=== PATIENT | male | born 1990 | race Two or more races ===

== ENCOUNTER 2017-02-11 | Emergency (ER) | payer SELFPAY ==
[2017-02-11 00:44] VITALS: BP 133/79; PULSE 89; BMI 30.9
[2017-02-11] MEDS ORDERED: SODIUM CHLORIDE FOR INHALATION 3 ML VIAL.NEB IH ONE (01:36)
--- NOTE | 2017-02-11 01:37 | PDOC ---
*Physical Exam - Vital Signs Last Vital Signs Temp Pulse Resp BP Pulse Ox 89 18 133/79 99 02/11/17 00:42 02/11/17 00:42 02/11/17 00:42 02/11/17 00:42 Medical Decision Making - Medical Decision Making 02/11/17 01:37 agree with care from [facility] *DC/Admit/Observation/Transfer Diagnosis at time of Disposition: Lightheaded - Referrals Referrals: Tonia Sauer MD [Staff Physician] - - Patient Instructions Printed Discharge Instructions: DI for Inhalation Injury Additional Instructions: As discussed, please follow up with a primary care doctor this week if any new symptoms present. If you experience any shortness of breath, headache, palpitations, chest pain, nausea, vomiting, fever, chills, or any new or worsening symptoms, please return to the ER.
--- NOTE | 2017-02-11 02:50 | PDOC ---
History of Present Illness - General Chief Complaint: Lightheaded Stated Complaint: Lightheaded Time Seen by Provider: 02/11/17 00:45 - History of Present Illness Initial Comments: 02/11/17 02:47 CHIEF COMPLAINT: lightheadedness HISTORY OF PRESENT ILLNESS: 26 yo M with no PMH presents to ED with lightheadedness. Patient reports that "I used a lot of Raid in my house earlier , and now I feel lightheaded." He denies any shortness of breath, headache, nausea, vomiting, dizziness, or palpitations. PAST MEDICAL HISTORY: Denies past medical history SOCIAL HISTORY: Denies tobacco, alcohol, illicit drug use. SURGICAL HISTORY: Denies ALLERGIES: No known drug allergies REVIEW OF SYSTEMS General/Constitutional: Denies fever or chills. Denies weakness, weight change. HEENT: Denies change in vision. Denies ear pain or discharge. Denies sore throat. Cardiovascular: Denies chest pain or shortness of breath. Respiratory: Denies cough, wheezing, or hemoptysis. Gastrointestinal: Denies nausea, vomiting, diarrhea or constipation. Denies rectal bleeding. Genitourinary: Denies dysuria, frequency, or change in urination. Musculoskeletal: Denies joint or muscle swelling or pain. Denies neck or back pain. Skin and breasts: Denies rash or easy bruising. Neurologic: "Lightheadedness." Denies headache, vertigo, loss of consciousness, or loss of sensation. PHYSICAL EXAM General Appearance: Well-appearing, appropriately dressed. No apparent distress , no intoxication. HEENT: EOMI, PERRLA, normal ENT inspection, normal voice, TMs normal, pharynx normal. No conjunctival pallor. No photophobia, scleral icterus. Neck: Supple. Trachea midline. No tenderness, rigidity, carotid bruit, stridor , lymphadenopathy, or thyromegaly. Respiratory/Chest: Lungs CTAB. No shortness of breath, chest tenderness, respiratory distress, accessory muscle use. No crackles, rales, rhonchi, stridor , wheezing, dullness Cardiovascular: RRR. S1, S2. No JVD, murmur, bradycardia, tachycardia. Vascular Pulses: Dorsalis-Pedis (R): 2+, Dorsalis-Pedis (L): 2+ Gastrointestinal/Abdominal: Normal bowel sounds. Abdomen soft, non-distended. No tenderness or rebound tenderness. No organomegaly, pulsatile mass, guarding , hernia, hepatomegaly, splenomegaly. Lymphatic: No adenopathy, tenderness. Musculoskeletal/Extremities: Normal inspection. FROM of all extremities, normal capillary refill. Pelvis Stable. No CVA tenderness. No tenderness to extremities, pedal edema, swelling, erythema or deformity. Integumentary: Appropriate color, dry, warm. 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 Fully oriented, alert. Appropriate mood/affect. Motor strength 5/5. No appreciable EOM palsy, facial droop or sensory deficit. Past History - Past Medical History Allergies/Adverse Reactions: Allergies Allergy/AdvReac Type Severity Reaction Status Date / Time No Known Allergies Allergy Verified 02/11/17 00:44 Home Medications: Ambulatory Orders Sulfamethoxazole/Trimethoprim [Bactrim DS -] 1 tab PO BID #14 tablet 08/30/13 Mupirocin Cream [Bactroban 2% Cream -] 1 applic TP TID #1 tube 09/01/13 - Surgical History Appendectomy: Yes - Immunization History Immunization Up to Date: Yes - Psycho/Social/Smoking Cessation Hx Anxiety: No Suicidal Ideation: No Smoking History: Never smoked Have you smoked in the past 12 months: No Number of Cigarettes Smoked Daily: 0 Cigars Per Day: 0 Information on smoking cessation initiated: No Hx Alcohol Use: No Drug/Substance Use Hx: No Substance Use Type: None *Physical Exam - Vital Signs Last Vital Signs Temp Pulse Resp BP Pulse Ox 89 18 133/79 99 02/11/17 00:42 02/11/17 00:42 02/11/17 00:42 02/11/17 00:42 ED Treatment Course - Medications Given in the ED: ED Medications Discontinued Medications Generic Name Dose Route Start Last Admin Trade Name Freq PRN Reason Stop Dose Admin Sodium Chloride 3 ml 02/11/17 01:36 02/11/17 01:58 Normal Saline For Inhalation - IH 02/11/17 01:37 3 ml ONCE ONE Administration Medical Decision Making - Medical Decision Making 02/11/17 02:48 26 yo M with no PMH presents to ED with lightheadedness. Patient exam unremarkable. -saline neb Patient reassessed. At this time patient reports he is feeling better and feels comfortable following up with PMD if any new symptoms presents. Referral provided. Advised patient of signs and symptoms for return to ER; patient verbalized understanding and agrees to plan. *DC/Admit/Observation/Transfer Diagnosis at time of Disposition: Lightheadedness - Discharge Dispostion Disposition: HOME Condition at time of disposition: Stable Admit: No - Referrals Referrals: Tonia Sauer MD [Staff Physician] - - Patient Instructions Printed Discharge Instructions: DI for Inhalation Injury Additional Instructions: As discussed, please follow up with a primary care doctor this week if any new symptoms present. If you experience any shortness of breath, headache, palpitations, chest pain, nausea, vomiting, fever, chills, or any new or worsening symptoms, please return to the ER.
== END 2017-02-11 03:19 ==
LOC: JER
CPT/HCPCS: 99281-25

== ENCOUNTER 2017-02-12 09:39 | Emergency (ER) | payer SELFPAY ==
[2017-02-12 09:46] VITALS: TEMP 98.1; BMI 30.9
[2017-02-12 10:22] LABS: URINE APPEARANCE CLEAR; URINE BILIRUBIN NEGATIVE (NEGATIVE); URINE BLOOD 1+ (NEGATIVE); URINE COLOR LTYELLOW; URINE GLUCOSE (UA) NEGATIVE (NEGATIVE); URINE KETONE NEGATIVE (NEGATIVE); URINE LEUK ESTERASE NEGATIVE (NEGATIVE); URINE NITRITE NEGATIVE (NEGATIVE); URINE PROTEIN NEGATIVE (NEGATIVE); URINE UROBILINOGEN NEGATIVE mg/dL (0.2-1.0)
[2017-02-12 10:28] LABS: URINE RBC 1 /hpf (0-3); URINE WBC <1 /hpf (3-5)
--- NOTE | 2017-02-12 11:13 | PDOC ---
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 Patient reports it became acutely worse 4 days ago. He reports he feels unsteady on his feet. He states he has had similar symptoms before associated with palpitations. He denies current palpitations today. Denies fever, chills, chest pain, SOB, abdominal pain, urinary complaints, diarrhea, constipation. - Physicial Exam PE: 02/12/17 11:22 I agree with the residents physical exam. <Sil Hopper - Last Filed: 02/12/17 11:22>
[2017-02-12] MEDS ORDERED: SODIUM CHLORIDE 0.9% 1000 ML INFUS.BAG IV ONE (11:15)
[2017-02-12 11:16] LABS: BASOPHIL 0.5 % (0-2.0); EOSINOPHIL 0.5 % (0-4.5); MCH 26.8 pg (25.7-33.7); MCHC 33.3 g/dl (32.0-35.9); MEAN CELL VOLUME 80.5 fl (80-96); MEAN PLT VOLUME 7.8 fl (7.5-11.1); PLATELET COUNT 241 K/MM3 (134-434); RDW 14.4 % (11.9-15.9); WHITE BLOOD COUNT 6.3 K/mm3 (4.0-10.0)
[2017-02-12 11:53] LABS: ALBUMIN 3.9 g/dl (3.4-5.0); ANION GAP 9 (8-16); BILIRUBIN,TOTAL 0.4 mg/dL (0.2-1.0); CALCIUM 9.4 mg/dL (8.5-10.1); CO2 27 mmol/L (21-32); CREATININE 1.2 mg/dL (0.7-1.3); GLUCOSE,RANDOM 97 mg/dL (74-106); SGOT/AST 24 U/L (15-37); SGPT/ALT 37 U/L (12-78); TOT PROT 7.8 g/dl (6.4-8.2)
[2017-02-12 11:54] LABS: ALK PHOS 53 U/L (45-117)
--- NOTE | 2017-02-12 13:41 | PDOC ---
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 The patient reports a sensation of feeling "wobbly" that began 6 days ago. It resolved 5 days ago, however return after he worked out 4 days ago and has persisted since that time. He was seen in the ED 2 days ago for these same complaints, was given a saline nebulizer and determined to be safe for discharge at that time. He states that he presents today due to persistent symptoms despite his visit to the ED 2 days ago. He denies fevers, chills, SOB , chest pain, abdominal pain, changes with urination or bowel movements. Past History - Past Medical History Allergies/Adverse Reactions: Allergies Allergy/AdvReac Type Severity Reaction Status Date / Time No Known Allergies Allergy Verified 02/12/17 09:42 Home Medications: Ambulatory Orders NK [No Known Home Medication] 02/12/17 Cardiac Disorders: Yes (WPW) - Surgical History Appendectomy: Yes - Immunization History Immunization Up to Date: Yes - Psycho/Social/Smoking Cessation Hx Anxiety: No Suicidal Ideation: No Smoking History: Never smoked Have you smoked in the past 12 months: No Number of Cigarettes Smoked Daily: 0 Cigars Per Day: 0 Hx Alcohol Use: No Drug/Substance Use Hx: No Substance Use Type: None Review of Systems - Review of Systems Constitutional: No: Chills, Fever HEENTM: No: Recent change in vision, Tinnitus Respiratory: No: Cough, Shortness of Breath Cardiac (ROS): No: Chest Pain, Palpitations, Chest Tightness ABD/GI: No: Constipated, Diarrhea, Nausea, Vomiting : No: Burning, Dysuria, Pain Integumentary: No: Rash Neurological: No: Headache, Numbness, Tingling, Weakness *Physical Exam - Vital Signs Last Vital Signs Temp Pulse Resp BP Pulse Ox 98.1 F 98 H 18 151/80 100 02/12/17 09:42 02/12/17 09:42 02/12/17 09:42 02/12/17 09:42 02/12/17 09:42 - Physical Exam Comments: 02/12/17 13:43 General Appearance: Nourished. No Apparent Distress HEENT: EOMI, WILD. No Pale Conjunctivae, Pharyngeal Erythema, Tonsillar Exudate, Tonsillar Erythema Respiratory/Chest: Lungs Clear, Normal Breath Sounds. No Crackles, Rales, Rhonchi, Wheezing Cardiovascular: Regular Rhythm, Regular Rate. No Murmur, Gallop/S3, Gallop/S4 Gastrointestinal/Abdominal: Normal Bowel Sounds, Soft. 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 Normal Finger to Nose and johnson to heel. No gait abnormalities. ED Treatment Course - LABORATORY CBC & Chemistry Diagram: 02/12/17 11:10 02/12/17 11:10 - ADDITIONAL ORDERS Additional order review: Laboratory Results 02/12/17 02/12/17 11:10 10:00 Sodium 137 Potassium 4.2 Chloride 101 Carbon Dioxide 27 Anion Gap 9 BUN 13 Creatinine 1.2 Creat Clearance w eGFR > 60 Random Glucose 97 Calcium 9.4 Total Bilirubin 0.4 AST 24 ALT 37 Alkaline Phosphatase 53 Total Protein 7.8 Albumin 3.9 Urine Color Ltyellow Urine Appearance Clear Urine pH 5.0 Urine Protein Negative Urine Glucose (UA) Negative Urine Ketones Negative Urine Blood 1+ H Urine Nitrite Negative Urine Bilirubin Negative Urine Urobilinogen Negative Ur Leukocyte Esterase Negative Urine RBC 1 Urine WBC <1 02/12/17 11:10 RBC 5.74 H MCV 80.5 MCHC 33.3 RDW 14.4 MPV 7.8 Neutrophils % 70.0 Lymphocytes % 22.2 Monocytes % 6.8 Eosinophils % 0.5 Basophils % 0.5 - RADIOLOGY Radiology Studies Ordered: Category Date Time Status HEAD CT WITHOUT CONTRAST [CT] Stat CT Scan 02/12/17 13:04 Ordered - Medications Given in the ED: ED Medications Discontinued Medications Generic Name Dose Route Start Last Admin Trade Name Freq PRN Reason Stop Dose Admin Sodium Chloride 1,000 ml 02/12/17 11:15 02/12/17 11:15 Normal Saline - IV 02/12/17 11:16 1,000 ml NOW ONE Administration Medical Decision Making - Medical Decision Making 02/12/17 13:44 Patient is a 26 year old male with a 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 Differential includes but is not limited to: Anemia, Metabolic abnormalities, Infectious, Intracranial process, BPV, Anxiety, arrhythmia. Given the patient's history and benign physical exam, it is likely his symptoms may have an aspect of anxiety to them. EKG done in triage demonstrates normal sinus rhythm making arrhythmia less likely. Patient was able to stand on one leg and lease picker an object from the floor without balance issues. We will obtain a cbc, cmp, UA and head CT to evaluate for other etiology that could be causing his symptoms. 02/12/17 15:17 CBC, CMP, UA are unremarkable. Head CT was read as no acute intracranial process by our radiologist. It is likely that the patient's symptoms are due to anxiety. We discussed the results with the patient and provided education on anxiety management including following up with a primary care provider. We feel comfortable discharging the patient home at this time and the patient is agreeable with the plan. *DC/Admit/Observation/Transfer Diagnosis at time of Disposition: Anxiety - Discharge Dispostion Disposition: HOME Condition at time of disposition: Improved Admit: No - Patient Instructions Printed Discharge Instructions: DI for Anxiety -- Adult Additional Instructions: Please return to the ER if you experience concerning or worsening symptoms. It is important to follow up with a primary care provider to discuss your ER visit and help manage your symptoms. - Attestations Physician Attestion: 02/12/17 15:15 I, Dr. Dominick Machuca, attest that this document has been prepared under my direction and personally reviewed by me in its entirety. I further attest, that it accurately reflects all work, treatment, procedures and medical decision -making performed by me.
--- NOTE | 2017-02-12 15:30 | EKG ---
Test Reason : Blood Pressure : / mmHG Vent. Rate : 086 BPM Atrial Rate : 086 BPM P-R Int : 146 ms QRS Dur : 076 ms QT Int : 340 ms P-R-T Axes : 070 057 018 degrees QTc Int : 406 ms NORMAL SINUS RHYTHM NORMAL ECG NO PREVIOUS ECGS AVAILABLE Confirmed by MATHEW WYATT MD ([id number]) on 02/12/2017 3:30:04 PM Referred By: Confirmed By:MATHEW WYATT MD
[2017-02-12 16:04] VITALS: BP 149/72; PULSE 82
== END 2017-02-12 16:05 | disposition home or self-care (01) ==
LOC: JER 09:39
DX: F41.9 Anxiety disorder, unspecified (principal); I45.6 Pre-excitation syndrome
CPT/HCPCS: 36415; 70450-TC; 80053; 81003; 81015; 85025; 93005; 93010; 99284-25